=== PATIENT | male | born 1935 | race Caucasian/White ===

== ENCOUNTER → 2016-06-26 | Outpatient (CLI) | payer OTHER ==
[~2016-06-26] MED LIST: AMLO2.5T PO; ASPI81TA28 PO; ATEN-173 PO; ATOR-24 PO; FINA5TAB PO; HYDR12.55; MULT-506 PO; NTRGSL/4 SL; NXM/40 PO
[2016-06-26 13:31] LABS: BASO % 0.8 %; BASO ABS # 0.05 K/uL (0-0.2); COMPLETE YES; EOS % 1.1 %; HEMATOCRIT 42.1 % (42-52); IG% 0.2 %; LYMPH % 30.4 %; MEAN CELL VOLUME 93.8 fL (80-100); MEAN CORPUSCULAR HEMOGLOBIN 32.7 pg (25-34); MEAN CORPUSCULAR HGB CONC 34.9 g/dl (32-36); MEAN PLATELET VOLUME 10.1 fL (7.4-10.4); MONO % 8.4 %; NEUT % 59.1 %; PLATELET COUNT 174 K/uL (130-400); RED BLOOD COUNT 4.49 M/uL (4.7-6.1); WHITE BLOOD COUNT 6.58 K/uL (4.8-10.8)
[2016-06-26 13:51] LABS: ALT/SGPT 26 U/L (12-78); AST/SGOT 27 U/L (15-37); BLOOD UREA NITROGEN 15 mg/dl (7-18); CALCIUM 8.8 mg/dl (8.5-10.1); CARBON DIOXIDE 28 mmol/L (21-32); CHLORIDE 109 mmol/L (98-107); GLUCOSE 95 mg/dl (70-99); POTASSIUM 4.3 mmol/L (3.5-5.1); SODIUM 143 mmol/L (136-145)
[2016-06-26 13:54] LABS: ALB/GLOB RATIO 1.1 (0.9-2); ALKALINE PHOSPHATASE 66 U/L (45-117); CHOLESTEROL 117 mg/dl (0-200); CHOLESTEROL/HDL RATIO 3.3; HDL CHOLESTEROL 35 mg/dl; LDL CHOLESTEROL CALCULATED 40 mg/dl; TRIGLYCERIDES 212 mg/dl (0-150); VERY LOW DENSITY LIPOPROT CALC 42 mg/dl
== END | disposition home or self-care (01) ==
LOC: C.LABBC 11:15
PROVIDERS: ATTEND Internal Medicine Geriatric Medicine
DX: I25.10 Atherosclerotic heart disease of native coronary artery without angina pectoris (principal); E78.5 Hyperlipidemia, unspecified; H91.90 Unspecified hearing loss, unspecified ear

== ENCOUNTER → 2017-02-04 | Outpatient (CLI) | payer OTHER ==
[~2017-02-04] MED LIST changes: -HYDR12.55; +METO-217 PO
--- NOTE | 2017-02-04 09:39 | DIAGNOSTIC IMAGING REPORT ---
L-SPINE MIN 4 VIEWS ROUTINE CLINICAL HISTORY: Back pain status post lumbar laminectomy COMPARISON STUDY: Intraoperative study performed September 2012 FINDINGS: There is a lumbar dextroscoliosis. There are postsurgical changes of discectomies and interbody fusions at the L3-4 and L4-5 levels. There are progressive advanced degenerative changes at the L2-3 level with mild retrolisthesis of L2 on L3. There is also disc space narrowing at the L1-2 level with mild retrolisthesis of L1 on L2. There are no acute fractures. There are pedicle screws the L3-5 levels with adjoining spinal rods IMPRESSION: 1. Postsurgical changes at the L3 through 5 level 2. Lumbar dextroscoliosis 3. Moderately advanced degenerative change at the L1-2 and L2-3 levels. 4. No acute fractures Electronically signed by: Bran Vitale M.D. 02/04/2017 9:38 AM Dictated Date/Time: 02/04/2017 9:35 AM
[2017-02-04 11:25] LABS: BLOOD UREA NITROGEN 15 mg/dl (7-18); CREATININE 0.93 mg/dl (0.60-1.40)
== END | disposition home or self-care (01) ==
LOC: C.LAB 09:00
PROVIDERS: ATTEND Anesthesiology
DX: Z01.812 Encounter for preprocedural laboratory examination (principal); M96.1 Postlaminectomy syndrome, not elsewhere classified; M41.9 Scoliosis, unspecified

== ENCOUNTER → 2017-06-24 | Outpatient (CLI) | payer OTHER ==
[~2017-06-24] MED LIST changes: -ATEN-173 PO; +ATRIN INH
[2017-06-24 13:46] LABS: BASO % 0.9 %; BASO ABS # 0.05 K/uL (0-0.2); EOS % 0.9 %; EOS ABS # 0.05 K/uL (0-0.5); HEMATOCRIT 40.3 % (42-52); IG# 0.01 K/uL (0.00-0.02); LYMPH % 34.3 %; LYMPH ABS # 1.88 K/uL (1.2-3.4); MEAN CELL VOLUME 93.7 fL (80-100); MEAN CORPUSCULAR HEMOGLOBIN 32.6 pg (25-34); MEAN CORPUSCULAR HGB CONC 34.7 g/dl (32-36); MEAN PLATELET VOLUME 9.6 fL (7.4-10.4); MONO % 9.9 %; MONO ABS # 0.54 K/uL (0.11-0.59); NEUT % 53.8 %; NEUT ABS # 2.95 K/uL (1.4-6.5); PLATELET COUNT 174 K/uL (130-400); RED CELL DISTRIBUTION WIDTH CV 13.3 % (11.5-14.5); RED CELL DISTRIBUTION WIDTH SD 45.4 fL (36.4-46.3); WHITE BLOOD COUNT 5.48 K/uL (4.8-10.8)
[2017-06-24 14:11] LABS: ALBUMIN 3.5 gm/dl (3.4-5.0); ALT/SGPT 30 U/L (12-78); AST/SGOT 27 U/L (15-37); BLOOD UREA NITROGEN 14 mg/dl (7-18); CALCIUM 8.9 mg/dl (8.5-10.1); CARBON DIOXIDE 28 mmol/L (21-32); CHOLESTEROL 117 mg/dl (0-200); CREATININE 0.89 mg/dl (0.60-1.40); GLUCOSE 88 mg/dl (70-99); POTASSIUM 4.2 mmol/L (3.5-5.1); SODIUM 140 mmol/L (136-145)
[2017-06-24 14:13] LABS: ALKALINE PHOSPHATASE 69 U/L (45-117); LDL CHOLESTEROL CALCULATED 53 mg/dl
== END | disposition home or self-care (01) ==
LOC: C.LABBC 11:26
PROVIDERS: ATTEND Internal Medicine Geriatric Medicine
DX: I10 Essential (primary) hypertension (principal); I25.10 Atherosclerotic heart disease of native coronary artery without angina pectoris; M54.16 Radiculopathy, lumbar region; E78.5 Hyperlipidemia, unspecified

== ENCOUNTER 2018-11-06 06:23 | Inpatient (IN) ==
--- NOTE | 2018-10-05 11:29 | PAT Medication Instructions ---
Medication Instructions Date of Service October 05, 2018 Home Medications amlodipine 5 mg PO QPM aspirin 81 mg PO QAM atorvastatin 40 mg PO PM clopidogrel 75 mg PO QAM finasteride 5 mg PO QAM metoprolol succinate 200 mg PO QAM nitroglycerin 1 tab SUBLINGUAL UD PRN pantoprazole 40 mg PO QAM ranitidine HCl 300 mg PO QPM ASK your prescriber and surgeon clopidogrel 75 mg PO QAM Take morning of surgery With a small sip of water, OTHERWISE NOTHING TO EAT OR DRINK AFTER MIDNIGHT: aspirin 81 mg PO QAM finasteride 5 mg PO QAM metoprolol succinate 200 mg PO QAM nitroglycerin 1 tab SUBLINGUAL UD PRN (if needed) pantoprazole 40 mg PO QAM Take evening before surgery amlodipine 5 mg PO QPM atorvastatin 40 mg PO PM nitroglycerin 1 tab SUBLINGUAL UD PRN (if needed) ranitidine HCl 300 mg PO QPM Other Notes If you have any questions please call us at [phone] or [phone] or [phone] or [phone]
--- NOTE | 2018-10-05 11:33 | Anesthesiology Consultation ---
Date of Service October 05, 2018 Assessment & Plan (1) Encounter for pre-operative examination: Preoperative cardiac evaluation ([place]) 10/21/2018: "He is currently stable and asymptomatic from a cardiovascular standpoint with no anginal symptoms occurring to greater than 4 METS of activity. He has no evidence of CHF or significant valvular abnormality. His blood pressure is adequately controlled. EKG shows sinus bradycardia with nonspecific ST abnormality, which is overall unchanged compared to prior study in October 2017. Given this information, patient is an acceptable risk to proceed with upcoming surgery without any additional cardiovascular testing or intervention. He may hold his Plavix for 7 days prior to surgery. He should remain on beta-richmond and aspirin therapy throughout the perioperative period." Chart Review Chart Review: Acceptable Risk for Surgery and Patient seen in Pre Admission Testing Consults Requested cardiac Teaching & Discussion Instructed NPO after midnight before surgery, except medications with 15 cc of water. Medication instructions provided according to the PAT guidelines. Plavix instructions per cardio and surgeon. History Surgery Operation Date: 11/06/18 08:30 Proposed Procedures p Reverse Right Total Shoulder Replacement - Tim Ludwig DO Height/Weight Height: 5 ft 7 in Weight: 76.3 kg Allergies Allergy/AdvReac Type Severity Reaction Status Date / Time prednisone Allergy Severe CHEST PAIN Verified 09/28/18 08:51 Medications Home Medications Medication Instructions Recorded Confirmed Last Taken amlodipine 5 mg PO QPM 05/01/18 09/28/18 05/07/18 aspirin 81 mg PO QAM 05/01/18 09/28/18 05/08/18 09:00 atorvastatin 40 mg PO PM 05/01/18 09/28/18 05/07/18 clopidogrel 75 mg PO QAM 05/01/18 09/28/18 05/08/18 09:00 finasteride 5 mg PO QAM 05/01/18 09/28/18 05/07/18 metoprolol succinate 200 mg PO QAM 05/01/18 09/28/18 05/08/18 09:00 nitroglycerin 1 tab SUBLINGUAL UD PRN 05/01/18 09/28/18 Unknown pantoprazole 40 mg PO QAM 05/01/18 09/28/18 05/08/18 09:00 ranitidine HCl 300 mg PO QPM 05/01/18 09/28/18 05/07/18 Past Medical History Medical History BPH (benign prostatic hyperplasia) CAD (coronary artery disease) Degenerative disc disease LOWER BACK GERD (gastroesophageal reflux disease) Hearing deficit History of retinal tear BOTH EYES Hx of melanoma of skin CHEST AND BACK Hyperlipidemia Hypertension Osteoarthritis Exercise / Class Metabolic Activity II 4-5 Yardwork/Stairs/Walk up hill (Denies CP or SOB with stairs) Past Family History Family History Other No family history of adverse response to anesthesia Past Surgical History Surgical History History of Mohs micrographic surgery for skin cancer x2 History of bilateral cataract extraction History of cardiac cath 07/21/2000 @ [facility], no stent 11/03/2017 @ [facility] with stent placement with Dr. Rosado History of colonoscopy History of heart artery stent 11/03/2017 @[facility]---DRUG ELUTING History of left inguinal hernia repair History of lumbar spinal fusion History of nasal surgery X2 History of surgical procedure on eye proper using laser bilt eyes History of tonsillectomy and adenoidectomy History of tooth extraction Hx of angioplasty Past Anesthesia History No Hx of Anesthesia Complications and No Family Hx of Anesthesia Complications History of PONV No Hx of PONV and No Hx of Motion Sickness Social History Smoking Status: Former smoker Do You Dip or Chew Tobacco: No Smoking End Date: >10 YEARS GO Hx Alcohol Use: No Hx Substance Use: No substance use type: does not use Review of Systems Pt denies any recent chest pain, shortness of breath, palpitations, cough, fever or URI. Physical Exam Vital Signs BP: 157/77 P: 59bpm SPO2: 96% RA T: 97.7 F R: 16 ENMT Mouth: + dental restorations (few crowns on molars); no chipped teeth and no loose teeth Thyromental Distance: < 3.5 Finger Breadths (3) Mallampati Class: I Neck normal visual inspection; neck extension not limited Respiratory normal respiratory effort Auscultation: lungs clear to auscultation bilaterally Cardiovascular Rate/Rhythm: regular rate and regular rhythm Heart Sounds: no murmur Vessels: no carotid bruit Extremities: no edema Testing Laboratory Results 10/05/18 11:46 10/05/18 11:46 PT 10.7 Seconds (9.0-12.0) 10/05/18 11:46 INR 1.0 (0.9-1.1) 10/05/18 11:46 APTT 27.4 Seconds (21.0-31.0) 10/05/18 11:46 Blood Type O Negative 10/05/18 11:46 Antibody Screen NEGATIVE 10/05/18 11:46 Electrocardiogram Date: 10/05/18 Findings: + SB @ (56) Nonspecific ST abnormality. No significant change from from 11/03/17. Chest X-Ray Date: 10/05/18 Findings: + NAD Echocardiogram Date: 07/25/17 EF: 55-60% Normal LV size and systolic function. No regional wall motion abnormalities. Mild concentric LVH. Type I diastolic dysfunction. Sclerotic AV with mild regurgitation. Mildly dilated aortic root, 4.2 cm. Stress Test Date: 07/25/17 Type: exercise No ischemic changes noted on stress echo at 95% MPHR. Abnormal exercise EKG, with ischemic changes noted at 95% MPHR. Chest pain/tightness reported during exercise, resolved win recovery. No arrhythmia. Cardiac Catheterization Date: 11/03/17 IMPRESSION: Severe CAD involving ostial to proximal D1. Moderate to severe CAD involving small non-dominant RCA. No aortic stenosis. Normal LVEDP. Ongoing exertional dyspnea despite high dose BB and CCB. SUMMARY: Successful PCI of ostial/proximal OM1 with single SOLEDAD. Successful POBA of proximal 1st diagonal.
--- NOTE | 2018-10-05 12:08 | XRay Report ---
XR chest Pre-admission PA/Lat CLINICAL HISTORY: 83 years-old Male presenting with preoperative evaluation. TECHNIQUE: PA and lateral views of the chest were obtained. COMPARISON: 09/18/2012. FINDINGS: Atherosclerosis of the aortic arch. Cardiac silhouette normal in size. Lungs and pleural spaces clear . Pleural parenchymal scarring suggested at the apices. Osseous structures normal. Upper abdomen norm al. IMPRESSION: 1. No acute cardiopulmonary disease. Electronically signed by: Tesfaye Zamora M.D. 10/05/2018 12:07 PM
[2018-10-05 12:36] LABS: Basophils # (auto) 0.06 K/uL (0-0.2); Basophils % (auto) 1.2 %; Eosinophils # (auto) 0.08 K/uL (0-0.5); Eosinophils % (auto) 1.6 %; Hematocrit (blood only) 41.4 % (42-52); Hemoglobin 14.4 g/dL (14.0-18.0); Lymphocytes # (auto) 1.45 K/uL (1.2-3.4); Lymphocytes % (auto) 29.3 %; Mean Corpuscular Hgb Conc 34.8 g/dL (32-36); Mean Platelet Volume 9.7 fL (7.4-10.4); Monocytes # (auto) 0.53 K/uL (0.11-0.59); Monocytes % (auto) 10.7 %; Neutrophils # (auto) 2.83 K/uL (1.4-6.5); Neutrophils % (auto) 57.2 %; Platelet Count 165 K/uL (130-400); RDW Coefficient of Variation 12.9 % (11.5-14.5); RDW Standard Deviation 43.9 fL (36.4-46.3); Red Blood Count 4.45 M/uL (4.7-6.1); White Blood Count 4.95 K/uL (4.8-10.8)
[2018-10-05 12:44] LABS: Est GFR (African American) 85.3; Est GFR (Non-African American) 73.6; Potassium 4.2 mmol/L (3.5-5.1)
[2018-10-05 12:45] LABS: BUN Creatinine Ratio 15.1 (10-20); Calcium 9.1 mg/dl (8.5-10.1); Creatinine Clr Calc Pharmacy 53.7 ml/min
[2018-10-05 12:52] LABS: Partial Thromboplastin Time 27.4 Seconds (21.0-31.0); Prothrombin Time 10.7 Seconds (9.0-12.0)
--- NOTE | 2018-11-03 07:24 | History & Physical Report ---
Date of Service November 03, 2018 Assessment & Plan (1) Rotator cuff arthropathy of right shoulder: We will proceed with a right reverse shoulder arthroplasty. Postoperatively he will be placed in a sling and started back up on his aspirin and Plavix. He will be kept overnight in the hospital for postoperative medical management. He plans to use energy physical therapy upon discharge. Present on Admission?: Yes History of Present Illness Chief Complaint: Rotator cuff arthropathy of the right shoulder Primary Care Provider: Frank Kamara MD Larry is a pleasant 83-year-old male who has been dealing with chronic increasing right shoulder pain. He initially had an injection about 4 years ag o. He then had subsequent injections without much relief. His shoulder pain significantly affecting his quality of life. X-rays and clinical examination were diagnostic for rotator cuff arthropathy of the right shoulder. He does have an extensive medical history including a cardiac catheterization and stent placement about a year ago. We discussed his age and his medical comorbidities at length including the risk for procedure. His shoulder is affecting his quality of life enough that he would still like to proceed with a right reverse shoulder arthroplasty. Allergies Allergy/AdvReac Type Severity Reaction Status Date / Time prednisone Allergy Severe CHEST PAIN Verified 09/28/18 08:51 Home Medications Home Medications Medication Instructions Recorded Confirmed Type amlodipine 5 mg PO QPM 05/01/18 09/28/18 History aspirin 81 mg PO QAM 05/01/18 09/28/18 History atorvastatin 40 mg PO PM 05/01/18 09/28/18 History clopidogrel 75 mg PO QAM 05/01/18 09/28/18 History finasteride 5 mg PO QAM 05/01/18 09/28/18 History metoprolol succinate 200 mg PO QAM 05/01/18 09/28/18 History nitroglycerin 1 tab SUBLINGUAL UD PRN 05/01/18 09/28/18 History pantoprazole 40 mg PO QAM 05/01/18 09/28/18 History ranitidine HCl 300 mg PO QPM 05/01/18 09/28/18 History Past Med/Surg History Medical History BPH (benign prostatic hyperplasia) CAD (coronary artery disease) Degenerative disc disease LOWER BACK GERD (gastroesophageal reflux disease) Hearing deficit History of retinal tear BOTH EYES Hx of melanoma of skin CHEST AND BACK Hyperlipidemia Hypertension Osteoarthritis Surgical History History of Mohs micrographic surgery for skin cancer x2 History of bilateral cataract extraction History of cardiac cath 07/21/2000 @ [facility], no stent 11/03/2017 @ [facility] with stent placement with Dr. Rosado History of colonoscopy History of heart artery stent 11/03/2017 @[facility]---DRUG ELUTING History of left inguinal hernia repair History of lumbar spinal fusion History of nasal surgery X2 History of surgical procedure on eye proper using laser bilt eyes History of tonsillectomy and adenoidectomy History of tooth extraction Hx of angioplasty Family History Other No family history of adverse response to anesthesia Social History Preferred Language: Swedish Communication Ability: Effective Hearing Ability: Hard of Hearing Beliefs That Will Affect Care: None Current Living Situation: Spouse current occupation: Retired Feels Safe at Home: Yes Smoking Status: Former smoker Second Hand Exposure: No Hx Alcohol Use: No Hx Substance Use: No Review of Systems All systems reviewed & are unremarkable except as noted in HPI & below Physical Exam Constitutional: WD/WN, vitals as above Eyes: PERRL, conjunctivae normal, anicteric sclerae ENMT: external ear and nose normal, oropharynx normal Neck: trachea midline, no thyromegaly Respiratory: normal respiratory effort Cardiovascular: RRR, no murmur, no edema Gastrointestinal (Abdomen): normal bowel sounds, soft, nontender, no hepatosplenomegaly Musculoskeletal: Physical examination of the right shoulder reveals decreased range of motion and significant weakness. There is tenderness palpation along the anterior glenohumeral joint line. The right upper extremity is neurovascularly intact. Psychiatric: A+Ox3, euthymic affect Results & Data Diagnostic Findings Radiographs of the right shoulder show some signs of osteoarthritis with blunting of the greater tuberosity and some superior migration of the humeral head on the glenoid.
[~2018-11-06 06:23] MED LIST changes: +ACETAMINOPHEN 500 MG TAB PO SCH; -AMLO2.5T PO; -ASPI81TA28 PO; -ATOR-24 PO; -ATRIN INH; +CEFAZOLIN 1000MG 1,000 MG/7.5 ML SYR IV SCH; +FAMOTIDINE 20 MG TAB PO SCH; -FINA5TAB PO; +GABAPENTIN 300 MG CAP PO SCH; +LR 15ML/HR IV SCH; +LR 60ML/HR IV SCH; -METO-217 PO; -MULT-506 PO; -NTRGSL/4 SL; -NXM/40 PO; +ROPIVACAINE 0.5% HCL/PF 150 MG, BUPIVACAINE 0.5% MPF 30 ML, EPINEPHrine 30MG/30ML (OR U... INSTIL SCH; +TRANEXAMIC ACID 1,000 MG **IV Pre-op IV SCH
[2018-11-06] MEDS ORDERED: TRANEXAMIC ACID 1,000 MG **IV Intra-op IV SCH (06:30)
--- NOTE | 2018-11-06 06:55 | History & Physical Bridge Note ---
Date of Service November 06, 2018 History & Physical Bridge Note I have examined the patient, reviewed the History & Physical and in the interval since the performance of the History & Physical I have noted the following changes of clinical significance: no changes noted
[2018-11-06] MEDS ORDERED: ROPIVACAINE 0.5% 5 MG/ML 30 ML VIAL ONE (07:05)
[2018-11-06] MEDS ORDERED: fentaNYL citrate 100 MCG/2 ML VIAL ONE (07:13)
[2018-11-06] MEDS ORDERED: LIDOCAINE HCL 2% 2 ML VIAL/AMP(20MG/ML) INFIL ONE (07:13)
[2018-11-06] MEDS ORDERED: PROPOFOL IV EMULSION 10 MG/ML 20 ML VIAL IV ONE (07:13)
[2018-11-06] MEDS ORDERED: NEOSTIGMINE METHYLSULFATE 5 MG/5 ML SYR ONE (07:13)
[2018-11-06] MEDS ORDERED: GLYCOPYRROLATE 0.2 MG/ML VIAL ONE (07:13)
[2018-11-06] MEDS ORDERED: DEXAMETHASONE SOD INJ 4 MG/ML VIAL ONE (07:13)
[2018-11-06] MEDS ORDERED: ONDANSETRON INJ 2 MG/ML 2 ML VIAL ONE (07:13)
[2018-11-06] MEDS ORDERED: MIDAZOLAM HCL 1 MG/ML 2ML VIAL ONE (07:14)
[2018-11-06] MEDS ORDERED: fentaNYL citrate 100 MCG/2 ML VIAL IV PRN (07:17)
[2018-11-06] MEDS ORDERED: ATROPINE SULFATE 0.1 MG/ML 10ML SYR IV PRN (07:17)
[2018-11-06] MEDS ORDERED: ePHEDrine sulfate 50 MG/ML AMP IV PRN (07:17)
[2018-11-06] MEDS ORDERED: ONDANSETRON INJ 2 MG/ML 2 ML VIAL IV PRN ×2 (07:17→11:09)
[2018-11-06] MEDS ORDERED: ORTHO JOINT ANESTHETIC ONE (07:27)
[2018-11-06] MEDS ORDERED: BUPIVACAINE 0.5 % 5 MG/1 ML PF 10ML VIAL ONE (08:04)
[2018-11-06] MEDS ORDERED: ROCURONIUM BROMIDE 10 MG/ML 5 ML VIAL ONE (09:28)
--- NOTE | 2018-11-06 09:39 | Operative Report ---
Post Operative Report Pre & Post Diagnosis Operation Date: 11/06/18 08:30 Pre-Op Diagnosis: Right Shoulder rotator cuff arthropathy Post-Op Diagnosis: Right Shoulder rotator cuff arthropathy Procedure Operation Date: 11/06/18 08:30 Actual Procedures p Reverse Right Total Shoulder Replacement(Right) - Tim Ludwig DO Surgeon Tim Ludwig DO Hairspring Cutter Tim Hoff PAC Estimated Blood Loss 200 Findings Consistent with Post-Op Diagnosis Specimens Right humeral head Complications none Disposition Disposition: Recovery Room Indications Farhad is a pleasant 83-year-old male who presented my office with chronic increasing right shoulder pain. X-rays and clinical examination were diagnostic for rotator cuff tear arthropathy of the right shoulder. After failing conservative treatment, he elected to proceed with a right reverse shoulder arthroplasty. Description of Procedure Implants used: I used a [employer]omet Comprehensive reverse total shoulder arthroplasty system with a size 12 press fit mini humeral stem, a standard humeral tray and a standard humeral bearing, a 25 mm mini baseplate with a 6.5 mm central screw and superior and inferior locking screws, and a size 36 mm eccentric glenosphere. The patient arrived at [facility] for the above procedure. There were seen in the preoperative holding area and the operative extremity was identified and signed. They were given a preoperative antibiotic and an interscalene nerve block. They were taken back to the operating room, laid on table in supine position, and put under general anesthesia. They were then put into the beachchair position. The shoulder was then prepped and draped in sterile fashion. A timeout was done and the patient in the operative extremity was properly identified. A deltopectoral approach was used. Dissection was taken down through the fascia and the deltoid was retracted laterally and the conjoined tendon was retracted medially. The anterior shoulder was exposed. The long head of the biceps tendon was tenodesed to the upper border of the pectoralis major. The subscapularis was then released off the lesser tuberosity with a centimeter of cuff tissue remaining. The inferior capsule was released and the humeral head was dislocated. A canal finding reamer was sent down the center of the humeral canal. Sequential reaming up to a size 12 reamer was done. Off that reamer, a proximal humeral resection guide was placed. The proximal humerus was resected at 135 of inclination and 25 of retroversion. Osteophytes were then removed and the glenoid was exposed. Time was spent doing a complete capsular and labral release. The glenoid guide was then placed in the inferior aspect of the glenoid. A 3.2 mm Steinmann pin was then placed into the glenoid vault at 10 of inclination. The glenoid baseplate was then reamed. The final size 25 mm mini baseplate was then impacted in the place. A 6.5 mm central screw was then placed followed by superior and inferior locking screws. A 36 mm eccentric glenoid sphere was then impacted into place. Surrounding soft tissues were then injected with 100 cc an orthopedic pain control cocktail. The proximal humerus was then exposed. Sequential broaching of the humerus up to a size 12 broach was done. Off that broach a standard humeral tray was trialed. The shoulder was then reduced, brought through a full range of motion and felt to be stable. The shoulder was then dislocated and the broach was removed. The final size 12 mini press-fit humeral stem was then impacted into place. A standard humeral bearing was then snapped onto a standard humeral tray and the ring-lock mechanism was engaged. The humeral tray was then impacted onto the humeral stem. The shoulder was once again reduced, brought through a full range of motion and felt to be stable. The subscapularis was then tenodesed back to the lesser tuberosity with transosseous FiberWire sutures and side to side sutures with the arm in 45 of external rotation. A dilute betadyne lavage was then done for 3 minutes. The joint was then irrigated with normal saline solution. Hemostasis was obtained. The skin was then closed with 2-0 Vicryl, 3-0V lock suture, and juancho. A soft dressing and a regular arm sling was placed. The patient was then extubated and transferred to a hospital bed. They were taken to the postanesthesia care unit in stable condition. They tolerated the procedure well. I attest to the content of the Intraoperative Record and any orders documented therein. Any exceptions are noted below.
--- NOTE | 2018-11-06 10:40 | Anesthesiology Progress Note ---
Date of Service November 06, 2018 Anesthesia Post Procedure Vital Signs Vital Signs: Temp Pulse Pulse Resp BP BP Pulse Ox 11/06/18 10:30 55 L 17 128/62 98 11/06/18 10:20 56 L 16 125/61 98 11/06/18 10:12 96.8 F L 58 L 16 135/64 97 11/06/18 06:50 97.7 F 66 20 179/88 H 99 Transfer of Care Handoff Completed per policy Notes Mental Status: alert / awake / arousable and participated in evaluation Patient Amnestic to Procedure: Yes Nausea / Vomiting: adequately controlled Pain: adequately controlled Airway Patency, RR, SpO2: stable & adequate BP & HR: stable & adequate Hydration State: stable & adequate Anesthetic Complications: no major complications apparent and Pt Satisfied with anesthetic care
--- NOTE | 2018-11-06 10:50 | XRay Report ---
XR shoulder RT min 2V routine CLINICAL HISTORY: Post shoulder surgery COMPARISON STUDY: None. FINDINGS: Patient is status post a reverse right total shoulder arthroplasty. The hardware appears in tact. No fracture or dislocation. Skin juancho are in place. Gas within the joint space is likely due to the recent postoperative change. Right basilar linear densities favor subsegmental atelectasis. IMPRESSION: Status post reverse right total shoulder arthroplasty. No evidence for hardware complica tion. Electronically signed by: Broderick Barriga M.D. 11/06/2018 10:49 AM
[2018-11-06] MEDS ORDERED: METOCLOPRAMIDE HCL INJ 5 MG/ML 2 ML VIAL IV PRN (11:09)
[2018-11-06] MEDS ORDERED: HYDROmorphone INJ 0.5 MG/0.5 ML SYR IV PRN (11:09)
[2018-11-06] MEDS ORDERED: BISACODYL 10 MG SUPP PR PRN (11:09)
[2018-11-06] MEDS ORDERED: NALOXONE HCL 0.4 MG/1 ML VIAL/CARP IV PRN (11:09)
[2018-11-06] MEDS ORDERED: MAGNESIUM HYDROXIDE SUSP 30 ML UDC PO PRN (11:09)
[2018-11-06] MEDS ORDERED: NITROGLYCERIN SL 0.4 MG/TAB TAB SL PRN (11:09)
[2018-11-06] MEDS ORDERED: TRAMADOL HCL 50 MG TABLET PO PRN (11:09)
[2018-11-06] MEDS: SODIUM CHLORIDE 0.9% 1000ML 1,000 ML IV SCH ×2 (11:57→21:46)
[2018-11-06] MEDS ORDERED: ePHEDrine sulfate 50 MG/ML SYR ONE (12:18)
[2018-11-06] MEDS ORDERED: PHENYLEPHRINE 100MCG/ML 5ML SYR ONE (12:18)
[2018-11-06] MEDS: KETOROLAC TROMETHAMINE 15 MG/ML VIAL IV SCH ×2 (13:33→20:37)
[2018-11-06] MEDS: ACETAMINOPHEN 500 MG TAB PO SCH ×2 (13:33→21:00)
[2018-11-06] MEDS: CEFAZOLIN 2000MG 2,000 MG/15 ML SYR IV SCH (17:41)
[2018-11-06] MEDS: DOCUSATE SODIUM 100 MG CAP PO SCH (20:37)
[2018-11-06] MEDS ORDERED: SENNA 8.6 MG TAB PO SCH (21:00)
[2018-11-06] MEDS ORDERED: ATORVASTATIN 40 MG TAB PO SCH (21:00)
[2018-11-06] MEDS ORDERED: AMLODIPINE BESYLATE 5 MG TAB PO SCH (21:00)
[2018-11-07] MEDS: CEFAZOLIN 2000MG 2,000 MG/15 ML SYR IV SCH (01:35)
[2018-11-07] MEDS: KETOROLAC TROMETHAMINE 15 MG/ML VIAL IV SCH ×2 (01:35→09:41)
[2018-11-07] MEDS: ACETAMINOPHEN 500 MG TAB PO SCH (06:00)
[2018-11-07 06:08] LABS: Hematocrit (blood only) 37.8 % (42-52); Hemoglobin 13.2 g/dL (14.0-18.0); Immature Granulocytes # (auto) 0.02 K/uL (0.00-0.02); Immature Granulocytes % (auto) 0.2 %; Lymphocytes # (auto) 1.15 K/uL (1.2-3.4); Lymphocytes % (auto) 11.1 %; Mean Corpuscular Hgb Conc 34.9 g/dL (32-36); Mean Corpuscular Volume 93.3 fL (80-100); Mean Platelet Volume 9.1 fL (7.4-10.4); Monocytes % (auto) 9.6 %; Neutrophils # (auto) 8.23 K/uL (1.4-6.5); Neutrophils % (auto) 79.1 %; Platelet Count 136 K/uL (130-400); RDW Coefficient of Variation 12.8 % (11.5-14.5); RDW Standard Deviation 43.7 fL (36.4-46.3); Red Blood Count 4.05 M/uL (4.7-6.1)
[2018-11-07 06:38] LABS: BUN Creatinine Ratio 16.9 (10-20); Calcium 8.2 mg/dl (8.5-10.1); Creatinine Clr Calc Pharmacy 57.4 ml/min; Est GFR (African American) 90.8; Est GFR (Non-African American) 78.3; Potassium 4.3 mmol/L (3.5-5.1)
[2018-11-07] MEDS ORDERED: MULTIVITAMIN TAB PO SCH (09:00)
[2018-11-07] MEDS ORDERED: PANTOprazole 40 MG TAB PO SCH (09:00)
[2018-11-07] MEDS ORDERED: FINASTERIDE 5 MG TAB PO SCH (09:00)
[2018-11-07] MEDS ORDERED: CLOPIDOGREL BISULFATE 75 MG TAB PO SCH (09:00)
[2018-11-07] MEDS ORDERED: ASPIRIN 81 MG ECTAB PO SCH (09:00)
[2018-11-07] MEDS ORDERED: METOPROLOL SUCC 50MG EXT REL TAB PO SCH (09:00)
--- NOTE | 2018-11-07 09:04 | Orthopedic Progress Note ---
Date of Service November 07, 2018 Assessment & Plan (1) Rotator cuff arthropathy of right shoulder: Overall is doing very well. Is not having much pain in the right shoulder. He will be seen by physical therapy today for range of motion exercises. He can be discharged home later this morning. He plans to use energy physical therapy at home. He can follow-up with orthopedics in 2 weeks. Present on Admission?: Yes Subjective Farhad was seen and examined at bedside this morning. Overall is doing very well. Is not having any pain in the shoulder. He was able to get some sleep last night. He has no complaints. Physical Exam Musculoskeletal: On physical examination of the right shoulder, the dressing is clean and dry. His radial, median, and ulnar nerves are checked and intact his wrist. His axillary nerve is not checked yet. Results & Data Vital Signs (Past 12 Hours) Vital Signs Temp Pulse Pulse Resp BP Pulse Ox 11/07/18 07:12 36.4 C L 62 18 135/73 95 11/07/18 04:00 36.7 C 63 18 147/75 H 97 11/06/18 23:00 36.7 C 65 18 148/72 H 94 Laboratory Results H & H 10/05/18 11/07/18 Range/Units 11:46 05:52 Hgb 14.4 13.2 L (14.0-18.0) g/dL Hct 41.4 L 37.8 L (42-52) % Coagulation 10/05/18 Range/Units 11:46 INR 1.0 (0.9-1.1) Diagnostic Findings Postoperative x-rays of the right shoulder show the prosthesis to be in anatomic alignment without any evidence of fracture, dislocation, or loosening.
--- NOTE | 2018-11-07 09:05 | Discharge Summary ---
Date of Service November 07, 2018 Admission HPI Per Admitting Provider Larry is a pleasant 83-year-old male who has been dealing with chronic increasing right shoulder pain. He initially had an injection about 4 years ago. He then had subsequent injections without much relief. His shoulder pain significantly affecting his quality of life. X-rays and clinical examination were diagnostic for rotator cuff arthropathy of the right shoulder. He does have an extensive medical history including a cardiac catheterization and stent placement about a year ago. We discussed his age and his medical comorbidities at length including the risk for procedure. His shoulder is affecting his q uality of life enough that he would still like to proceed with a right reverse shoulder arthroplasty. Specialty Data Orthopedic H & H 10/05/18 11/07/18 Range/Units 11:46 05:52 Hgb 14.4 13.2 L (14.0-18.0) g/dL Hct 41.4 L 37.8 L (42-52) % Coagulation 10/05/18 Range/Units 11:46 INR 1.0 (0.9-1.1) Discharge Data Consultations 11/06/18 11:09 Consult Case Management - Discharge Planning Routine Procedures Performed Operation Date: 11/06/18 08:30 Actual Procedures p Reverse Right Total Shoulder Replacement(Right) - Tim Ludwig DO Hospital Course (1) Rotator cuff arthropathy of right shoulder: On November 06, 2018 Farhad arrived at [facility] and underwent a right reverse shoulder arthroplasty without complication. He had a general anesthetic and a right interscalene nerve block. Postoperatively he was placed in a sling and discharged to general orthopedic floors. His hospital course is uneventful. On postop day #1 his H&H was stable and his pain was well controlled. He was able to participate well with physical therapy doing range of motion exercises. He was then discharged home with energy physical therapy. He will follow-up with orthopedics in 2 weeks. Discharge Instructions Home Medications Medication Instructions Recorded Confirmed amlodipine 5 mg PO QPM 05/01/18 11/06/18 aspirin 81 mg PO QAM 05/01/18 11/06/18 atorvastatin 40 mg PO PM 05/01/18 11/06/18 clopidogrel 75 mg PO QAM 05/01/18 11/06/18 finasteride 5 mg PO QAM 05/01/18 11/06/18 metoprolol succinate 200 mg PO QAM 05/01/18 11/06/18 nitroglycerin 1 tab SUBLINGUAL UD PRN 05/01/18 11/06/18 pantoprazole 40 mg PO QAM 05/01/18 11/06/18 ranitidine HCl 300 mg PO QPM 05/01/18 11/06/18 Previous Rx's Medication Instructions Recorded oxycodone-acetaminophen 1 tab PO Q6H PRN #30 tab 11/07/18
[2018-11-07] MEDS: DOCUSATE SODIUM 100 MG CAP PO SCH (09:47)
== END 2018-11-07 10:43 | disposition home or self-care (01) | DRG 483 ==
LOC: ASU 06:23 → 3E 10:09